=== PATIENT | female | born 1985 | race African-American/Black ===

== ENCOUNTER 2016-07-25 03:45 | Inpatient (IN) | payer SELFPAY ==
[~2016-07-25] VITALS: Ht 170.2 cm; Wt 133.8 kg
[~2016-07-25 03:45] MED LIST: DILAUDID2 MG PO; DILAUDID8 MG PO; FOLIC ACID1 MG PO; HYDROXYUREA500 MG PO
[2016-07-25 08:41] LABS: ABSOLUTE RETICULOCYTE CT. 0.07 M/uL (0.02-0.08)
[2016-07-25 08:42] LABS: RETICULOCYTE COUNT 1.5 % (0.5-1.8)
[2016-07-25 08:52] LABS: CHLORIDE 106 mEq/L (99-109); POTASSIUM 4.2 mEq/L (3.7-5.4); SODIUM 140 mEq/L (136-147)
[2016-07-25 08:54] LABS: EOSINOPHIL (%) 0 % (0-5); HEMATOCRIT 37.3 % (36.0-46.0); IMMATURE GRANULOCYTE (%) 0.2 % (0.0-0.7); IMMATURE GRANULOCYTE COUNT 0.4 K/uL; LYMPHOCYTE COUNT 1.4 K/uL (1.0-2.8); MCH 29.7 PG (29.0-34.0); MCHC 33.8 G/DL (30.0-36.0); MEAN PLAT.VOLUME 10.7 uM^3 (9.5-12.4); MONOCYTE (%) 3.8 % (3-12); MONOCYTE COUNT 0.7 K/uL (0-0.8); NEUTROPHIL (%) 88.7 % (45-76); NEUTROPHIL COUNT 17.2 K/uL (1.8-6.4); PLATELET COUNT 357 K/uL (156-360); RBC DIS.WIDTH-CV 15.6 % (11.8-14.6); RBC DIS.WIDTH-SD 49.5 % (39-53); RED BLOOD COUNT 4.24 M/uL (3.80-5.20)
[2016-07-25 08:55] LABS: ANION GAP 17 MEQ/L (2-14)
[2016-07-25 08:56] LABS: GLUCOSE 427 mg/dL (70-99)
[2016-07-25 08:57] LABS: GFR ESTIMATE (CALCULATED) > 59 mL/min/
[2016-07-25 08:58] LABS: UREA NITROGEN (BUN) 19 mg/dL (9-23)
[2016-07-25 08:59] LABS: WHITE BLOOD COUNT 19.4 K/uL (4.1-10.2)
[2016-07-25 10:55] LABS: POINT-OF-CARE METER ID UU13113702
[2016-07-25 11:40] LABS: ADD MIUA? YES; BILIRUBIN NEGATIVE; BLOOD TRACE; COLOR YELLOW ((YELLOW)); GLUCOSE (STRIP) >=1000; KETONES 40; LEUKOCYTES NEGATIVE; NITRITE NEGATIVE; PROTEIN (STRIP) >=300; SPECIFIC GRAVITY 1.034 (1.000-1.030); UROBILINOGEN 0.2 MG/DL (0.2-1.0)
[2016-07-25 12:09] LABS: RED BLOOD CELLS 0-5 /HPF (0-5)
[2016-07-25 12:10] LABS: BACTERIA RARE; CASTS NONE SEEN /LPF; CRYSTALS NONE SEEN; EPITHELIAL CELLS 1+; MUCUS NONE SEEN; UCUL ADDED? NO; WHITE BLOOD CELLS 0-5 /HPF (0-5)
[2016-07-25 16:00] LABS: POINT-OF-CARE METER ID UU13113702
[2016-07-25 22:48] VITALS: BP 138/76
[2016-07-26 08:21] VITALS: BP 147/73
[2016-07-26 09:58] LABS: MCH 29.7 PG (29.0-34.0); MCHC 32.8 G/DL (30.0-36.0); MCV 90.7 FL (83-99); MEAN PLAT.VOLUME 11.2 uM^3 (9.5-12.4); PLATELET COUNT 385 K/uL (156-360); RBC DIS.WIDTH-CV 16.4 % (11.8-14.6); RBC DIS.WIDTH-SD 54.2 % (39-53); RED BLOOD COUNT 3.97 M/uL (3.80-5.20)
[2016-07-26 10:04] LABS: WHITE BLOOD COUNT 11.6 K/uL (4.1-10.2)
[2016-07-26 10:13] LABS: ANION GAP 11 MEQ/L (2-14); CHLORIDE 104 MEQ/L (99-109); GFR ESTIMATE (CALCULATED) > 59 mL/min/; GLUCOSE 337 mg/dL (70-99); POTASSIUM 3.8 MEQ/L (3.7-5.4); SAMPLE HEMOLYSIS CHECK 0; SAMPLE ICTERIC CHECK 0; SAMPLE LIPEMIA CHECK 0; SODIUM 138 MEQ/L (136-147)
[2016-07-26 10:15] LABS: UREA NITROGEN (BUN) 30 mg/dL (9-23)
[2016-07-26 11:10] LABS: POINT-OF-CARE METER ID UU13113725
[2016-07-26 15:46] VITALS: BP 132/67
[2016-07-26 19:47] VITALS: BP 152/81
[2016-07-26 22:56] VITALS: BP 159/82
[2016-07-27 02:59] VITALS: BP 157/86
[2016-07-27 07:05] LABS: EOSINOPHIL (%) 1.4 % (0-5); EOSINOPHIL COUNT 0.1 K/uL (0-0.3); HEMATOCRIT 32.4 % (36.0-46.0); IMMATURE GRANULOCYTE (%) 0.2 % (0.0-0.7); LYMPHOCYTE COUNT 4.6 K/uL (1.0-2.8); MCH 29.4 PG (29.0-34.0); MCHC 32.1 G/DL (30.0-36.0); MCV 91.5 FL (83-99); MEAN PLAT.VOLUME 10.4 uM^3 (9.5-12.4); MONOCYTE (%) 5.2 % (3-12); MONOCYTE COUNT 0.4 K/uL (0-0.8); NEUTROPHIL (%) 37.1 % (45-76); NEUTROPHIL COUNT 3.1 K/uL (1.8-6.4); PLATELET COUNT 292 K/uL (156-360); RBC DIS.WIDTH-SD 53.3 % (39-53); RED BLOOD COUNT 3.54 M/uL (3.80-5.20); WHITE BLOOD COUNT 8.3 K/uL (4.1-10.2)
[2016-07-27 07:29] LABS: ANION GAP 11 MEQ/L (2-14); CHLORIDE 106 MEQ/L (99-109); GFR ESTIMATE (CALCULATED) > 59 mL/min/; GLUCOSE 193 mg/dL (70-99); POTASSIUM 4.1 MEQ/L (3.7-5.4); SAMPLE HEMOLYSIS CHECK 0; SAMPLE ICTERIC CHECK 0; SAMPLE LIPEMIA CHECK 0; SODIUM 140 MEQ/L (136-147); UREA NITROGEN (BUN) 29 mg/dL (9-23)
[2016-07-27 07:45] VITALS: BP 125/65
[2016-07-27 11:10] LABS: POINT-OF-CARE METER ID UU13113717
[2016-07-27 11:16] VITALS: BP 134/61
[2016-07-27 16:20] VITALS: BP 134/84
[2016-07-27 16:31] LABS: POINT-OF-CARE METER ID UU13113717
[2016-07-27 19:52] VITALS: BP 141/81
[2016-07-27 23:11] VITALS: BP 150/99
[2016-07-28 03:17] VITALS: BP 140/88
[2016-07-28 07:58] VITALS: BP 168/107
[2016-07-28 11:54] VITALS: BP 148/87
[2016-07-28 16:46] LABS: POINT-OF-CARE METER ID UU13113725
[2016-07-28 16:55] VITALS: BP 157/95
[2016-07-28 23:59] VITALS: BP 138/82
[2016-07-29 03:50] VITALS: BP 177/96
[2016-07-29 06:19] LABS: POINT-OF-CARE METER ID UU13113725
[2016-07-29 08:34] VITALS: BP 140/70
[2016-07-29 11:49] LABS: POINT-OF-CARE METER ID UU13113725
[2016-07-29 13:20] VITALS: BP 148/76
[2016-07-29 15:35] LABS: POINT-OF-CARE METER ID UU13113725
[2016-07-29 17:10] VITALS: BP 151/60
[2016-07-30 04:05] VITALS: BP 145/98
[2016-07-30 04:30] LABS: POINT-OF-CARE METER ID UU13113725
[2016-07-30 09:11] LABS: HEMATOCRIT 34.3 % (36.0-46.0); MCH 29.7 PG (29.0-34.0); MCHC 33.2 G/DL (30.0-36.0); MCV 89.3 FL (83-99); MEAN PLAT.VOLUME 11.3 uM^3 (9.5-12.4); PLATELET COUNT 357 K/uL (156-360); RBC DIS.WIDTH-CV 15.6 % (11.8-14.6); RBC DIS.WIDTH-SD 49.8 % (39-53); RED BLOOD COUNT 3.84 M/uL (3.80-5.20)
[2016-07-30 09:12] LABS: WHITE BLOOD COUNT 13.7 K/uL (4.1-10.2)
[2016-07-30 09:31] LABS: ANION GAP 16 MEQ/L (2-14); CHLORIDE 102 MEQ/L (99-109); GFR ESTIMATE (CALCULATED) > 59 mL/min/; GLUCOSE 206 mg/dL (70-99); MAGNESIUM 1.2 mg/dl (1.3-2.7); POTASSIUM 3.7 MEQ/L (3.7-5.4); SAMPLE HEMOLYSIS CHECK 0; SAMPLE ICTERIC CHECK 0; SAMPLE LIPEMIA CHECK 0; SODIUM 140 MEQ/L (136-147); UREA NITROGEN (BUN) 22 mg/dL (9-23)
[2016-07-30 14:18] VITALS: BP 132/80
[2016-07-30 21:38] LABS: POINT-OF-CARE METER ID UU13113717
[2016-07-31 08:35] VITALS: BP 00/000
== END 2016-07-31 10:01 | disposition left against medical advice (07) | DRG 812 ==
LOC: EME 03:45 → 5EAST 10:31 → EDOF 10:31 → 5EAST 16:49
PROVIDERS: Emergency Medicine; Internal Medicine
DX: D57.419 Sickle-cell thalassemia, unspecified, with crisis (principal); R78.81 Bacteremia; D72.829 Elevated white blood cell count, unspecified; E11.65 Type 2 diabetes mellitus with hyperglycemia; E66.01 Morbid (severe) obesity due to excess calories; G89.29 Other chronic pain; G43.909 Migraine, unspecified, not intractable, without status migrainosus
CPT/HCPCS: 71020; 80048; 80202; 81003; 82948; 83735; 85025; 85027; 85045; 87040; 87077; 87186; 87801; 99281; 99285; J0696; J1170; J1200; J1630; J1650; J1815; J2060; J2405; J3370; J3480; J7030; J7050